=== PATIENT | female | born 1980 | race Caucasian/White ===

== ENCOUNTER → 2016-06-15 | Day surgery (SDC) ==
[~2016-06-15] MED LIST: CLAVE PUMP SET NO FILTER 12260 ONE; DEMEROL ONE; NITROGLYCERIN ONE; NS 1,000 ML ONE; NS 250 ML ONE; VERSED ONE; XYLOCAINE 1% 100 ML, EPINEPHRINE 1 MG, SODIUM BICARBONATE 8.4% 12.5 MEQ in NS 1,000 ML INJ SCH; XYLOCAINE 1% ONE
--- NOTE | 2016-06-15 12:26 | OPERATIVE NOTE ---
PROCEDURE DATE: 06/15/2016 PREOPERATIVE DIAGNOSES: 1. Chronic venous insufficiency of the left lower extremity. 2. Greater saphenous vein valvular reflux. 3. Nonhealing venous ulcers of the left leg. 4. Failure of medical therapy. POSTOPERATIVE DIAGNOSES: 1. Chronic venous insufficiency of the left lower extremity. 2. Greater saphenous vein valvular reflux. 3. Nonhealing venous ulcers of the left leg. 4. Failure of medical therapy. PROCEDURE: 1. Ultrasound-guided left greater saphenous vein access. 2. Radiofrequency ablation of left greater saphenous vein using the Fewziontronic closure vas system 26.5 cm treated. SURGEON: Nuno Novoa MD ANESTHESIA: 1. 1% lidocaine in tumescent mixture. 2. IV sedation provided with 2 mg of Versed and a total of 100 mg of Demerol. ESTIMATED BLOOD LOSS: 10 mL. COMPLICATIONS: None apparent. BRIEF HISTORY: This is a 35-year-old female with chronic nonhealing bilateral venous leg ulcers. She has been undergoing compression therapy, elevating her legs, and exercising without complete healing. This has been going on for greater than 6 months. She is here today for a second attempt at radiofrequency ablation of her left greater saphenous vein, which does have documented reflux disease. TECHNIQUE: She was brought to the operating room and placed supine on the table. Her left lower extremity was prepped and draped in usual sterile fashion. Time-out was performed. Versed and Demerol were given. Venous ultrasound was used to identify and sheree the greater saphenous vein by the underwriting technician. The vein was adequate diameter and did not have significant tortuosity. In the left proximal calf, the skin was anesthetized with lidocaine. A 20-gauge needle was then advanced under ultrasound guidance into the saphenous vein. There was a flash of blood and the wire did pass through the needle into the vein. A sheath was passed over the wire after making a small cut in the skin. I then took the catheter and began threading it through the sheath, there was some mild resistance in the knee area. However, the catheter continued to advance without significant resistance. The underwriting technician then placed the probe at the saphenofemoral junction and we did not see the catheter. Upon further investigation it became apparent that the catheter had followed a rotary lithographic press operator into the popliteal vein. We did pull the catheter back to the sheath and passed a guidewire through the catheter. We passed the catheter again over the guidewire and again it preferentially selected a perforating vein and went into the popliteal vein. I then aborted any further attempts at this point. I went up a little more proximal in the calf and attempted to access the greater saphenous vein, but could not access it successfully here. I then went to just above the knee, anesthetized the skin here, and this time I was able to access the vein and passed the wire and then the sheath and then the catheter into the sheath over the wire. The tip of the catheter was found to be at the saphenous femoral junction. The wire was removed. We pulled the tip of the catheter back a little over 3 cm from the saphenofemoral junction. I then infiltrated tumescent solution circumferentially around the saphenous vein under ultrasound guidance along multiple segments. I then treated the vein with the initial segment was treated first. We heated to 120 degrees Celsius for 20 seconds. I then pulled it back sequentially according to the markers on the catheter and each area was treated to 120 degrees Celsius for 20 seconds. The total treatment length was 26.5 cm, 100 mL of tumescent fluid was injected. Followup ultrasound showed no thrombus in the common femoral vein and no flow in the saphenous vein along the length that was treated. The leg was then wrapped with Kerlix and Coban above the knee and an Unna boot was placed below the knee. The procedure was terminated. The patient was transferred to the recovery room in stable condition.
== END | disposition home or self-care (01) ==
LOC: CATH 06:48
PROVIDERS: ATTEND Surgery
DX: I87.2 Venous insufficiency (chronic) (peripheral) (principal); L97.829 Non-pressure chronic ulcer of other part of left lower leg with unspecified severity; I25.10 Atherosclerotic heart disease of native coronary artery without angina pectoris; E11.9 Type 2 diabetes mellitus without complications; K92.9 Disease of digestive system, unspecified; K21.9 Gastro-esophageal reflux disease without esophagitis; I25.2 Old myocardial infarction; Z95.1 Presence of aortocoronary bypass graft; Z95.5 Presence of coronary angioplasty implant and graft; Z79.82 Long term (current) use of aspirin; Z79.4 Long term (current) use of insulin; Z79.899 Other long term (current) drug therapy
CPT/HCPCS: 36475; J0171; J2175; J2250; J7030; J7050

== ENCOUNTER 2016-09-12 18:05 | Inpatient (IN) ==
[2016-09-12] MEDS ORDERED: MORPHINE IV ONE (19:34)
[2016-09-12] MEDS ORDERED: NS 1,000 ML IV ONE (19:34)
[2016-09-12] MEDS ORDERED: ZOFRAN IV ONE (19:34)
[2016-09-12 19:55] LABS: ALLEN TEST YES; BE -25.9 mmoll (-3.0-3.0); BLOOD TYPE ARTERIAL; DRAW SITE L RADIAL; METHB 0.9 % (0.0-1.5); PO2(98.6) 113 mmHg (60-100); SAMPLE BLOOD; SAO2 97.7 % (95.0-100.0); THB 16.2 g/dL (11.5-17.4)
[2016-09-12 19:58] LABS: MODALITY ROOM AIR; PCO2(98.6) 16 mmHg (35-45); pH(98.6) 6.99 (7.35-7.45)
[2016-09-12 20:38] LABS: URINE CULTURE NEEDED? NO; URINE SOURCE CLEAN CATCH
[2016-09-12 20:45] LABS: BILIRUBIN URINE SMALL (NEGATIVE); BLOOD URINE SMALL (NEGATIVE); COLOR YELLOW; GLUCOSE URINE >1000 mg/dL (NEGATIVE); LEUKOCYTES URINE NEGATIVE (NEGATIVE); NITRITE URINE NEGATIVE (NEGATIVE); PH URINE 5.5; PROTEIN URINE 100 mg/dL (NEGATIVE); TURBIDITY URINE HAZY (CLEAR); UROBILINOGEN URINE NORMAL (NORMAL)
[2016-09-12 20:46] LABS: URINE MICRO REVIEW NEEDED? YES
[2016-09-12 20:50] LABS: UR EPITHELIAL CELLS <10 /HPF (<10); URINE BACTERIA NEGATIVE /HPF; URINE RBC <10 /HPF (<10); URINE WBC <10 /HPF (<10)
[2016-09-12 20:55] LABS: UR AMPHETAMINES QUAL NONE DETECTED (NONE DETECT); UR BARBITUATES QUAL NONE DETECTED (NONE DETECT); UR BENZODIAZEPIN QUAL NONE DETECTED (NONE DETECT); UR CANNABINOIDS QUAL NONE DETECTED (NONE DETECT); UR COCAINE QUAL NONE DETECTED (NONE DETECT); UR METHADONE QUAL NONE DETECTED (NONE DETECT); UR OPIATES QUAL NONE DETECTED (NONE DETECT); UR OXYCODONE QUAL NONE DETECTED (NONE DETECT); UR PCP QUAL NONE DETECTED (NONE DETECT)
[2016-09-12 21:03] LABS: BASO% 0.1 % (0.0-0.8); HEMATOCRIT 48.9 % (37.0-47.0); HEMOGLOBIN 15.5 g/dL (12.0-16.0); IMM GRAN# 0.15 X1000 (0.0-0.04); IMM GRAN% 0.7 % (0.0-0.5); LYMPH# 1.66 X1000 (1.2-3.4); MANUAL DIFF NEEDED? NO; MCH 24.8 PG (27-31); MCHC 31.7 g/dL (33-37); MCV 78.2 FL (81-99); MONO# 1.82 X1000 (0.11-0.59); MONO% 8.7 % (1.7-9.3); MPV 9.8 FL (7.4-10.4); NEUT% 82.5 % (42.2-75.2); PLT 451 X1000 (130-400); RBC 6.25 XMIL (4.2-5.4)
[2016-09-12] MEDS ORDERED: HUMULIN R 100 UNIT in NS 99 ML IV SCH (21:15)
[2016-09-12] MEDS ORDERED: HUMULIN R IV ONE (21:15)
[2016-09-12] MEDS ORDERED: D50W SYRINGE IV PRN (21:15)
[2016-09-12 21:16] LABS: URINE CASTS GRANULAR PRESENT; URINE CRYSTALS NONE SEEN; URINE SMALL ROUND CELLS NONE SEEN
[2016-09-12 21:29] LABS: ACETONE SERUM SMALL (NEGATIVE)
[2016-09-12] MEDS ORDERED: SODIUM PHOSPHATE 30 MMOL in D5W 250 ML IV PRN (21:30)
[2016-09-12] MEDS ORDERED: SODIUM BICARBONATE 8.4% 100 MEQ in D5W 500 ML IV PRN (21:30)
[2016-09-12] MEDS ORDERED: MAGNESIUM SULFATE 2 GM/S.W.I. 2 GM/50 ML IVPB IV PRN (21:30)
[2016-09-12 21:38] LABS: AGAP 29; ALBUMIN 4.2 g/dL (3.5-5.0); ALKALINE PHOSPHATASE 61 U/L (32-104); BUN 17 mg/dL (8-22); CALCIUM 8.9 mg/dL (8.8-10.2); CHLORIDE 98 mmol/L (98-107); CK PROFILE 28 U/L (24-173); COSMO 277; GOT 27 U/L (10-30); GPT 37 U/L (10-36); LIPASE 23 U/L (13-60); POTASSIUM 4.8 mmol/L (3.5-5.1); SODIUM 133 mmol/L (136-145); TCO2 6 mmol/L (25-35); TOTAL BILIRUBIN 0.52 mg/dL (0.20-1.00); TOTAL PROTEIN 9.2 g/dL (6.3-8.3)
[2016-09-12] MEDS: NS 1,000 ML IV SCH ×2 (23:30→23:49)
[2016-09-13] MEDS ORDERED: ZOFRAN IV PRN (00:05)
[2016-09-13] MEDS: NS 1,000 ML IV SCH ×5 (00:30→19:31)
[2016-09-13] MEDS: LEVAQUIN 500 MG/D5W 500 MG/100 ML IVPB IV SCH (01:01)
--- NOTE | 2016-09-13 01:24 | HISTORY AND PHYSICAL ---
CHIEF COMPLAINT: Nausea and vomiting x1 day. HISTORY OF PRESENTING ILLNESS: A 36-year-old female with a history of diabetes mellitus type 2, coronary artery disease, and hypertension, who had presented to the emergency department with a 1- day history of worsening nausea and vomiting. The patient states that she went on an extreme diet to lose weight, and she stopped her insulin, and then over the past day or so, she developed these symptoms. She was evaluated in the ER. She was found to have a low pH, and also elevated glucose, consistent with DKA. Subsequently, she will need hospitalization for further management. At the time of my examination, she denied any headache, visual changes, fevers, chills, chest pain, shortness of breath, but did admit to having nausea and vomiting and not feeling well. PAST MEDICAL HISTORY: Includes diabetes mellitus type 2, insulin-dependent, coronary artery disease, hypertension, and hyperlipidemia. PAST SURGICAL HISTORY: Cholecystectomy, coronary bypass, coronary stent. ALLERGIES: Penicillin. CURRENT MEDICATIONS: As listed in the MAR. SOCIAL HISTORY: She is a former smoker. Denies any history of alcohol or illicit drug use. FAMILY HISTORY: Positive for coronary artery disease in grandparents. REVIEW OF SYSTEMS: Twelve point review of systems listed as in HPI. Other systems negative. PHYSICAL EXAMINATION: GENERAL: Cooperative, friendly, obese female. She is resting more comfortably now. VITAL SIGNS: Temperature 98.1 degrees, pulse 122, respirations 26, blood pressure 145/93. She is saturating 100%. HEENT: Atraumatic, normocephalic. Extraocular movements intact. PERRLA. NECK: No masses. CHEST: Clear to auscultation. CARDIOVASCULAR: Regular rate and rhythm. ABDOMEN: Soft, obese, positive bowel sounds. EXTREMITIES: No edema. NEUROLOGIC: She is awake, alert, oriented x3. GENITOURINARY: No bladder distention. SKIN: Warm. LABORATORIES AND STUDIES: WBC 20.83, hemoglobin 15.5, hematocrit 48.9, platelets 451,000. Blood gases show a pH of 6.99. Other laboratories still pending. ASSESSMENT: A 36-year-old female with a history of diabetes mellitus type 2, insulin-dependent, coronary artery disease, and hypertension, who presented to the emergency department with a 1-day history of worsening nausea, vomiting. She was evaluated in the ER. She was found to be in diabetic ketoacidosis, and due to her presenting symptoms, she will need hospitalization for further management. 1. Diabetic ketoacidosis. 2. Leukocytosis. 3. Hypertension. 4. Coronary artery disease. 5. Hyperlipidemia. PLAN: 1. We will admit the patient to ICU. 2. We will put patient on an insulin drip protocol for diabetic ketoacidosis. 3. We will check blood cultures and start patient on empiric antibiotics. 4. We will monitor blood pressure closely. 5. Resume her home medications. 6. We will check a lipid profile. 7. Put patient on DVT prophylaxis with SCDs. 8. We will continue to follow and reassess. cc: Henry Martin MD
[2016-09-13 01:25] LABS: ALLEN TEST YES; BE -23.3 mmoll (-3.0-3.0); BLOOD TYPE ARTERIAL; DRAW SITE R RADIAL; METHB 0.6 % (0.0-1.5); O2(CT) 19.9 mL/dL (15.0-23.0); PO2(98.6) 180 mmHg (60-100); SAMPLE BLOOD; SAO2 98.2 % (95.0-100.0); THB 14.3 g/dL (11.5-17.4)
[2016-09-13 01:26] LABS: PCO2(98.6) 17 mmHg (35-45); pH(98.6) 7.07 (7.35-7.45)
[2016-09-13 01:27] LABS: MODALITY ROOM AIR
[2016-09-13 01:35] LABS: HEMOGLOBIN A1C 10.2 % (4.8-6.0)
[2016-09-13] MEDS: D5 NS 1,000 ML IV SCH ×4 (02:08→22:36)
[2016-09-13 05:46] LABS: ALLEN TEST YES; BE -19.1 mmoll (-3.0-3.0); BLOOD TYPE ARTERIAL; DRAW SITE R RADIAL; METHB 0.7 % (0.0-1.5); O2(CT) 19.3 mL/dL (15.0-23.0); PO2(98.6) 90 mmHg (60-100); SAMPLE BLOOD; SAO2 97.5 % (95.0-100.0); THB 14.3 g/dL (11.5-17.4)
[2016-09-13 05:48] LABS: MODALITY ROOM AIR; PCO2(98.6) 24 mmHg (35-45); pH(98.6) 7.14 (7.35-7.45)
[2016-09-13 06:04] LABS: MANUAL DIFF NEEDED? NO
[2016-09-13 06:12] LABS: BASO% 0.1 % (0.0-0.8); HEMATOCRIT 41.3 % (37.0-47.0); HEMOGLOBIN 13.4 g/dL (12.0-16.0); IMM GRAN# 0.07 X1000 (0.0-0.04); IMM GRAN% 0.5 % (0.0-0.5); LYMPH# 1.54 X1000 (1.2-3.4); MCHC 32.4 g/dL (33-37); MCV 77.1 FL (81-99); MONO# 1.47 X1000 (0.11-0.59); MONO% 10.5 % (1.7-9.3); MPV 9.5 FL (7.4-10.4); NEUT% 77.9 % (42.2-75.2); PLT 361 X1000 (130-400); RBC 5.36 XMIL (4.2-5.4)
[2016-09-13 06:39] LABS: AGAP 21; ALBUMIN 3.5 g/dL (3.5-5.0); ALKALINE PHOSPHATASE 48 U/L (32-104); BUN 13 mg/dL (8-22); CALCIUM 8.1 mg/dL (8.8-10.2); CHLORIDE 108 mmol/L (98-107); COSMO 279; GOT 19 U/L (10-30); GPT 26 U/L (10-36); POTASSIUM 4.1 mmol/L (3.5-5.1); SODIUM 137 mmol/L (136-145); TCO2 8 mmol/L (25-35); TOTAL BILIRUBIN 0.38 mg/dL (0.20-1.00); TOTAL PROTEIN 7.5 g/dL (6.3-8.3)
[2016-09-13 08:58] LABS: MANUAL DIFF NEEDED? NO
[2016-09-13 09:00] LABS: BASO% 0.1 % (0.0-0.8); HEMOGLOBIN 13.7 g/dL (12.0-16.0); IMM GRAN# 0.07 X1000 (0.0-0.04); IMM GRAN% 0.5 % (0.0-0.5); LYMPH% 10.5 % (20.5-51.1); MCHC 32.6 g/dL (33-37); MCV 76.8 FL (81-99); MONO# 1.34 X1000 (0.11-0.59); MPV 9.2 FL (7.4-10.4); NEUT% 78.9 % (42.2-75.2); PLT 340 X1000 (130-400); RBC 5.47 XMIL (4.2-5.4)
[2016-09-13 09:59] LABS: ALLEN TEST YES; BE -17.2 mmoll (-3.0-3.0); BLOOD TYPE ARTERIAL; DRAW SITE R RADIAL; METHB 0.6 % (0.0-1.5); PCO2(98.6) 28 mmHg (35-45); PO2(98.6) 89 mmHg (60-100); SAMPLE BLOOD; SAO2 96.7 % (95.0-100.0); THB 14.1 g/dL (11.5-17.4)
[2016-09-13 10:00] LABS: MODALITY ROOM AIR; pH(98.6) 7.16 (7.35-7.45)
[2016-09-13] MEDS: ZOFRAN IV PRN (10:01)
[2016-09-13] MEDS: TYLENOL PO PRN ×2 (10:40→20:47)
--- NOTE | 2016-09-13 13:47 | PROGRESS NOTE ---
DATE: 09/13/2016 SUBJECTIVE: The patient is still having nausea. No vomiting. She did not have any fever or chills. The patient has been losing weight for her gastric sleeve surgery coming up. She has lost over 30 pounds, and her blood sugar has been running low, so she did not take her insulin for 3 days and started having nausea and vomiting for the past day and came in with DKA. OBJECTIVE: Vital Signs: Blood pressure is 125/64, pulse of 110, respirations 23, temperature 98.3 degrees, saturation 97% on room air. General Appearance: Well-developed, well-nourished white female in moderate distress due to nausea. HEENT: Anicteric. Clear conjunctivae. Neck supple. No JVD. No bruit. Cardiovascular: S1, S2 normal rate and rhythm. No murmur, rubs, or gallops. Pulmonary: Clear to auscultation bilaterally. GI: Soft, nontender, nondistended. Normoactive bowel sounds. Musculoskeletal: No clubbing, cyanosis, or edema. White cell count is 13.39. Hemoglobin 13.7, hematocrit of 42.0, platelets of 340,000. Chemistry: Sodium 137, potassium 4.1, chloride 108, bicarb 8. BUN 13, creatinine 0.9, glucose 184. ASSESSMENT AND PLAN: This is a 36-year-old, white female, admitted to the hospital for diabetic ketoacidosis. We will keep the patient on insulin drip. Her gap still is wide. We will continue bicarb drips. We will continue with diabetic ketoacidosis protocol and we will check her basic every 4 hours to monitor her gap. Education provided regarding insulin intake. The patient is to check her blood sugar more often and try to adhere to her insulin regimens and contact her physician before she would make any major changes in her insulin regimens. We will keep the patient in ICU for now, and we will continue with diabetic ketoacidosis protocol.
[2016-09-13 13:50] LABS: MANUAL DIFF NEEDED? NO
[2016-09-13 14:04] LABS: BASO% 0.1 % (0.0-0.8); EOS# 0.01 X1000 (0.0-0.7); EOS% 0.1 % (0.0-10.0); HEMATOCRIT 41.1 % (37.0-47.0); HEMOGLOBIN 13.3 g/dL (12.0-16.0); LYMPH# 1.43 X1000 (1.2-3.4); LYMPH% 11.6 % (20.5-51.1); MCH 25.4 PG (27-31); MCHC 32.4 g/dL (33-37); MCV 78.6 FL (81-99); MONO# 1.32 X1000 (0.11-0.59); MONO% 10.7 % (1.7-9.3); MPV 9.3 FL (7.4-10.4); NEUT% 77.5 % (42.2-75.2); PLT 310 X1000 (130-400); RBC 5.23 XMIL (4.2-5.4)
[2016-09-13 14:21] LABS: MAGNESIUM 2.1 mg/dL (1.5-2.7)
[2016-09-13 14:44] LABS: AGAP 17; BUN 11 mg/dL (8-22); CALCIUM 8.3 mg/dL (8.8-10.2); CHLORIDE 109 mmol/L (98-107); COSMO 278; POTASSIUM 3.9 mmol/L (3.5-5.1); SODIUM 137 mmol/L (136-145); TCO2 11 mmol/L (25-35)
[2016-09-13 17:25] LABS: MANUAL DIFF NEEDED? NO
[2016-09-13 17:43] LABS: BASO% 0.1 % (0.0-0.8); EOS# 0.01 X1000 (0.0-0.7); EOS% 0.1 % (0.0-10.0); HEMATOCRIT 39.2 % (37.0-47.0); IMM GRAN# 0.03 X1000 (0.0-0.04); IMM GRAN% 0.3 % (0.0-0.5); LYMPH# 1.37 X1000 (1.2-3.4); LYMPH% 13.1 % (20.5-51.1); MAGNESIUM 2.1 mg/dL (1.5-2.7); MCH 25.4 PG (27-31); MCHC 33.2 g/dL (33-37); MCV 76.6 FL (81-99); MONO# 1.22 X1000 (0.11-0.59); MONO% 11.7 % (1.7-9.3); MPV 9.2 FL (7.4-10.4); NEUT% 74.7 % (42.2-75.2); PLT 338 X1000 (130-400); RBC 5.12 XMIL (4.2-5.4)
[2016-09-13 17:55] LABS: AGAP 16; BUN 11 mg/dL (8-22); CALCIUM 8.4 mg/dL (8.8-10.2); CHLORIDE 109 mmol/L (98-107); COSMO 283; POTASSIUM 3.4 mmol/L (3.5-5.1); SODIUM 139 mmol/L (136-145); TCO2 14 mmol/L (25-35)
[2016-09-13 21:21] LABS: MANUAL DIFF NEEDED? NO
[2016-09-13 21:25] LABS: BASO% 0.1 % (0.0-0.8); EOS# 0.01 X1000 (0.0-0.7); EOS% 0.1 % (0.0-10.0); HEMATOCRIT 37.3 % (37.0-47.0); HEMOGLOBIN 12.4 g/dL (12.0-16.0); IMM GRAN# 0.02 X1000 (0.0-0.04); IMM GRAN% 0.2 % (0.0-0.5); LYMPH# 1.48 X1000 (1.2-3.4); LYMPH% 15.8 % (20.5-51.1); MCH 25.3 PG (27-31); MCHC 33.2 g/dL (33-37); MCV 76.1 FL (81-99); MONO# 1.05 X1000 (0.11-0.59); MONO% 11.2 % (1.7-9.3); MPV 9.3 FL (7.4-10.4); NEUT% 72.6 % (42.2-75.2); PLT 314 X1000 (130-400)
[2016-09-14] MEDS: NEUTRA-PHOS PO SCH ×3 (00:08→07:56)
[2016-09-14] MEDS: LEVAQUIN 500 MG/D5W 500 MG/100 ML IVPB IV SCH (00:08)
[2016-09-14] MEDS: TYLENOL PO PRN ×4 (00:17→20:13)
[2016-09-14 03:46] LABS: AGAP 14; BUN 9 mg/dL (8-22); CALCIUM 8.2 mg/dL (8.8-10.2); CHLORIDE 107 mmol/L (98-107); COSMO 278; POTASSIUM 2.7 mmol/L (3.5-5.1); SODIUM 137 mmol/L (136-145); TCO2 16 mmol/L (25-35)
[2016-09-14] MEDS: NS 1,000 ML IV SCH ×3 (04:05→15:56)
[2016-09-14] MEDS ORDERED: POTASSIUM CHLORIDE 20 MEQ in NS 100 ML IV PRN (04:55)
[2016-09-14] MEDS ORDERED: POTASSIUM CHLORIDE 40 MEQ in NS 250 ML IV PRN (04:55)
[2016-09-14] MEDS: D5 NS 1,000 ML IV SCH (05:21)
[2016-09-14] MEDS: ZOFRAN IV PRN ×2 (06:30→20:13)
[2016-09-14] MEDS ORDERED: POTASSIUM PHOSPHATE IV ONE (09:00)
[2016-09-14] MEDS ORDERED: NS IV ONE (09:00)
--- NOTE | 2016-09-14 10:17 | PROGRESS NOTE ---
DATE: 09/14/2016 SUBJECTIVE: The patient is feeling better than she was yesterday. She got nauseous after she was given the Neutra-Phos by mouth and vomited. OBJECTIVE: Vital Signs: Blood pressure 95/58, pulse of 88, respirations 22, temperature 98.4 degrees, saturations of 97% room air. General Appearance: Obese, white female in mild distress due to nausea. HEENT: Anicteric. Clear conjunctivae. Neck: Supple. No JVD. No bruit. Cardiovascular: S1 and S2. Normal rate and rhythm. No murmur, rubs, or gallops. Pulmonary: Clear to auscultation bilaterally. GI: Soft, nontender, nondistended. Normoactive bowel sounds. Musculoskeletal: No clubbing, cyanosis, or edema. LABORATORY: White count this morning is 9.35, hemoglobin 12.4, hematocrit of 37.3, platelets 314,000. Sodium 137, potassium 2.7, replaced, chloride 107, bicarb 16, BUN 14, anion gap is 14, creatinine 0.7, glucose of 193, alkaline phosphatase 2.0. ASSESSMENT AND PLAN: This is a 36-year-old white female admitted to the hospital for diabetic ketoacidosis. 1. Diabetic ketoacidosis. Her gap is closing. We will continue to replete her electrolytes. She is still on insulin drip. Once her gap is 12 or less will switch her over to Lantus 10 units and then medium dose sliding scale insulin. We will stop her antibiotics. With no evidence of infection she does not need to be on antibiotics at this point. 2. Morbid obesity. The patient is able participate in a gastric bypass program and weight loss program.
[2016-09-14 10:50] LABS: MAGNESIUM 1.9 mg/dL (1.5-2.7)
[2016-09-14 11:02] LABS: AGAP 13; BUN 7 mg/dL (8-22); CALCIUM 8.4 mg/dL (8.8-10.2); CHLORIDE 109 mmol/L (98-107); COSMO 286; SODIUM 140 mmol/L (136-145); TCO2 18 mmol/L (25-35)
[2016-09-14] MEDS ORDERED: LANTUS SUBQ ONE (15:04)
[2016-09-14] MEDS: HUMULIN R SUBQ SCH ×2 (15:51→20:08)
[2016-09-14] MEDS ORDERED: INSULIN PEN NEEDLES ONE (15:56)
[2016-09-14 16:30] LABS: AGAP 12; BUN 6 mg/dL (8-22); CALCIUM 8.4 mg/dL (8.8-10.2); CHLORIDE 107 mmol/L (98-107); COSMO 277; MAGNESIUM 1.9 mg/dL (1.5-2.7); POTASSIUM 2.7 mmol/L (3.5-5.1); SODIUM 138 mmol/L (136-145); TCO2 19 mmol/L (25-35)
[2016-09-15] MEDS: NS 1,000 ML IV SCH ×2 (04:21→17:36)
[2016-09-15] MEDS: ZOFRAN IV PRN (06:04)
[2016-09-15] MEDS: HUMULIN R SUBQ SCH ×4 (06:04→22:05)
[2016-09-15 06:07] LABS: MANUAL DIFF NEEDED? NO
[2016-09-15 06:42] LABS: BASO% 0.1 % (0.0-0.8); EOS# 0.08 X1000 (0.0-0.7); EOS% 1.1 % (0.0-10.0); HEMOGLOBIN 11.4 g/dL (12.0-16.0); LYMPH# 3.69 X1000 (1.2-3.4); LYMPH% 49.3 % (20.5-51.1); MCH 25.3 PG (27-31); MCHC 33.5 g/dL (33-37); MCV 75.6 FL (81-99); MONO# 0.81 X1000 (0.11-0.59); MONO% 10.8 % (1.7-9.3); MPV 9.2 FL (7.4-10.4); NEUT% 38.7 % (42.2-75.2); PLT 243 X1000 (130-400)
[2016-09-15] MEDS: TYLENOL PO PRN ×3 (08:15→21:08)
[2016-09-15] MEDS: LANTUS SUBQ SCH (08:15)
[2016-09-15 10:13] LABS: AGAP 15; BUN 5 mg/dL (8-22); CALCIUM 8.1 mg/dL (8.8-10.2); CHLORIDE 103 mmol/L (98-107); COSMO 280; MAGNESIUM 1.8 mg/dL (1.5-2.7); POTASSIUM 2.7 mmol/L (3.5-5.1); SODIUM 140 mmol/L (136-145); TCO2 22 mmol/L (25-35)
[2016-09-15] MEDS: LYRICA PO SCH ×2 (10:48→21:08)
[2016-09-15] MEDS: ROBAXIN PO SCH ×2 (10:48→21:07)
[2016-09-15] MEDS: LEXAPRO PO SCH (10:48)
--- NOTE | 2016-09-15 11:15 | PROGRESS NOTE ---
DATE: 09/15/2016 SUBJECTIVE: The patient started having some nausea and vomiting this morning. She denies having any fever or chills. Did well last night without any issue. Complained of having a headache. OBJECTIVE: Vital Signs: Blood pressure 121/70. Pulse of 79, respiration 21, temperature 97.1 degrees, saturation 95% on room air. General Appearance: Morbidly obese, white female in mild distress due to headache. HEENT anicteric. Clear conjunctivae. Neck supple. No JVD. No bruit. Cardiovascular: S1, S2. Normal rate and rhythm. No murmur, rubs, or gallops. Pulmonary clear to auscultation bilaterally. GI soft, nontender, nondistended. Normoactive bowel sounds. Musculoskeletal: No clubbing, cyanosis, or edema. Her chemistry this morning is still pending. Hematology noted. ASSESSMENT AND PLAN: This is a [id number] obese, white female, admitted to the hospital for diabetic ketoacidosis. 1. Diabetic ketoacidosis. Her gap has been closed. The patient is on sliding scale insulin and Lantus. She tolerated p.o. last night but she had some nausea. We will check her labs to make sure that her anion gap is still closed and her electrolytes still in check. Her blood sugar had been relatively well controlled. 2. Hyperlipidemia. We will resume her Lipitor now that she is able to take it by mouth. 3. Hypertension. Continue Coreg. 4. Chronic pain and muscle spasm. We will resume her Robaxin. 5. Depression. We will continue her Lexapro. 6. Peripheral neuropathy. We will continue her Lyrica. This medication will help her headache as well. 7. Deep vein thrombosis prophylaxis. We will put the patient on Lovenox. 8. CODE STATUS: THE PATIENT IS A FULL CODE. We will transfer the patient to the floor if her anion gap is closed.
[2016-09-15] MEDS ORDERED: POTASSIUM PHOSPHATE 40 MEQ in NS 250 ML IV ONE (14:16)
[2016-09-15] MEDS: POTASSIUM CHLORIDE 20 MEQ/SWI 20 MEQ/100 ML IVPB IV SCH ×2 (14:58→17:09)
[2016-09-16 04:05] LABS: BASO% 0.4 % (0.0-0.8); EOS# 0.13 X1000 (0.0-0.7); EOS% 1.6 % (0.0-10.0); HEMATOCRIT 35.3 % (37.0-47.0); HEMOGLOBIN 11.9 g/dL (12.0-16.0); LYMPH# 4.43 X1000 (1.2-3.4); LYMPH% 55.4 % (20.5-51.1); MANUAL DIFF NEEDED? NO; MCH 25.3 PG (27-31); MCHC 33.7 g/dL (33-37); MCV 74.9 FL (81-99); MONO# 0.63 X1000 (0.11-0.59); MONO% 7.9 % (1.7-9.3); MPV 8.8 FL (7.4-10.4); NEUT% 34.7 % (42.2-75.2); PLT 241 X1000 (130-400); RBC 4.71 XMIL (4.2-5.4)
[2016-09-16 04:13] LABS: AGAP 13; BUN 7 mg/dL (8-22); CALCIUM 8.4 mg/dL (8.8-10.2); CHLORIDE 101 mmol/L (98-107); COSMO 276; POTASSIUM 3.1 mmol/L (3.5-5.1); SODIUM 138 mmol/L (136-145); TCO2 24 mmol/L (25-35)
[2016-09-16] MEDS: HUMULIN R SUBQ SCH ×2 (06:04→10:25)
[2016-09-16] MEDS: NS 1,000 ML IV SCH (08:21)
[2016-09-16] MEDS: ROBAXIN PO SCH (08:21)
[2016-09-16] MEDS: LYRICA PO SCH (08:22)
[2016-09-16] MEDS: LEXAPRO PO SCH (08:22)
[2016-09-16] MEDS: LANTUS SUBQ SCH (08:23)
[2016-09-16] MEDS ORDERED: LOVENOX SUBQ SCH (09:00)
[2016-09-16 11:30] VITALS: BP 117/66
--- NOTE | 2016-09-16 21:40 | DISCHARGE SUMMARY ---
ADMISSION DATE: 09/12/2016 DISCHARGE DATE: 09/16/2016 PRIMARY CARE PHYSICIAN: Juan De La Torre MD DISCHARGE DIAGNOSES: 1. Diabetic ketoacidosis, resolved. 2. Diabetes type 2, uncontrolled. 3. Morbid obesity, improved. 4. Peripheral vascular disease. 5. Bilateral lower extremity ulcers. 6. Depression. 7. Hypertension. 8. Gastroesophageal reflux disease. DISCHARGE MEDICATIONS: 1. Vitamin D 5000 international units daily. 2. 70/30 NovoLog mix, 20 units twice a day. 3. Coreg 3.125 twice a day. 4. Invokana 300 mg by mouth in a.m. 5. Aspirin 81 mg p.o. daily. 6. Lantus 15 units at bedtime. 7. Lexapro 20 mg p.o. daily. 8. Omeprazole 40 mg p.o. daily. 9. B12 1 tablet p.o. daily. CONSULTATIONS AND PROCEDURES: None except for wound care consult. LABORATORY: At discharge, white count 7.99, hemoglobin 11.9, hematocrit of 35.3, platelets 241,000. Chemistry: Sodium 130, potassium 3.1, chloride 101, bicarb 24, BUN 7, creatinine 0.5, glucose 143. HOSPITAL COURSE: The patient is a 36-year-old white female admitted to the hospital for nausea and vomiting and was found to have a wide anion gap. The patient had been losing some weight and she did not take her insulin as prescribed because her blood sugars seemed to be running on the lower side. Then she started having nausea and vomiting. She did not take her insulin even then. So she came in with a wide anion gap. The patient was diagnosed with DKA and admitted to the ICU for insulin drips. We followed the DKA protocol. Took the patient about 3 days for her anion gap to close. For the past 24 hours she was able to eat and drink without any difficulty. We have repleted her electrolytes because of hypokalemia and hypophosphatemia. Her electrolytes are much improved. The patient is able to eat a full diabetic diet without any nausea or vomiting. From my standpoint, the patient can go. Because of weight loss, I cut her insulin down to 50 units of Lantus daily and 20 units of 70/30 twice a day. We will discharge the patient home at discharge. DISCHARGE EXAMINATION: Vital signs: Blood pressure 117/66, pulse of 76, respiration 18, temperature 97.8 degrees, saturations of 94% room air. General appearance: Obese white female in no acute distress. HEENT: Anicteric sclerae. Clear conjunctivae. Neck: Supple. No JVD. No bruit. Cardiovascular: S1, S2. Normal rate and rhythm. No murmur, rubs, or gallops. Pulmonary: Clear to auscultation bilaterally. GI: Soft, nontender, nondistended. Normoactive bowel sounds. Musculoskeletal: No clubbing, cyanosis, or edema. Extremities: She has an anterior ankle wound that is being managed by wound care and home health. PLAN: We will discharge the patient home. CONDITION: Stable and improving. ACTIVITY: As tolerated. FOLLOWUP: The patient can follow with her PCP in 1-2 weeks. TOTAL TIME DISCHARGING PATIENT: 35 minutes.
--- NOTE | 2016-10-10 20:37 | PROVIDER DOCUMENTATION ---
This chart was entered by Damaris Paige Scribe, acting as scribe for Jackson Lyon PA. HPI-General Adult - General Chief Complaint: General Adult Stated Complaint: VOMITING,LOW BLOOD SUGAR Time Seen by Provider: 09/12/16 19:09 Source: patient Allergies/Adverse Reactions: Patient Allergies Allergy/AdvReac Type Severity Reaction Status Date / Time Penicillins Allergy HIVES Verified 05/23/16 14:48 Home Medications: Home Medication List Medication Instructions Recorded Confirmed Last Taken Type Canagliflozin [Invokana] 300 mg PO AC 05/23/16 09/15/16 Unknown History Escitalopram Oxalate [Lexapro] 20 mg PO DAILY 05/23/16 09/15/16 09/12/16 09:00 History Omeprazole 40 mg PO DAILY 05/23/16 09/15/16 09/12/16 09:00 History Aspirin [Adult Low Dose Aspirin EC] 81 mg PO QAM 06/01/16 09/15/16 09/12/16 09: 00 History Carvedilol [Coreg] 3.125 mg PO BID 06/01/16 09/15/16 09/12/16 09:00 History Cholecalciferol (Vitamin D3) 5,000 unit PO DAILY 09/15/16 09/15/16 Unknown History [Vitamin D3] Cyanocobalamin (Vitamin B-12) 09/15/16 Unknown History [Vitamin B12] Insulin Glargine [Lantus] 15 unit SUBQ QHS #10 ml 09/16/16 09/15/16 09/12/16 09: 00 Rx Insulin Novolog 70/30 [Novolog Mix 20 units SQ AC + HS #10 ml 09/16/16 09/15/16 Unknown Rx 70/30] - History of Present Illness -Gen Adult Nature of Presenting Problems: 36 Y/O F presents to ED with General Adult . Pt is a morbidly obese, Pt has gone on a crash diet, so that she can lose weight with g sleeve. Pt hasn't taken her insulin due to her low numbers because of crash diet. Pt c/o of 2x days lethargic, fatigue, N. Location of Pain/Injury: reports: generalized Pain Radiation: reports: no radiation Severity: reports: severe Onset/Duration: reports: 2 days ago Timing: reports: still present Associated Symptoms: reports: fatigue, nausea, weakness. denies: cough, diarrhea, dizziness, fever/chills, sinus congestion/drainage Similar Symptoms Previously?: No - Diabetes Related Context Context: reports: low blood sugar Review of Systems - Adult - REVIEW OF SYSTEMS - ADULT Constitutional: reports: fatique, weight loss. denies: chills, fever Eyes: reports: no symptoms reported Ears, Nose, Mouth & Throat: reports: no symptoms reported Cardiovascular: reports: no symptoms reported Respiratory: denies: cough, shortness of breath Gastrointestinal: reports: nausea. denies: abdominal pain, diarrhea, vomiting Genitourinary: reports: no symptoms reported Musculoskeletal: reports: no symptoms reported Integumentary: reports: no symptoms reported Neurological: reports: no symptoms reported Psychiatric: reports: no symptoms reported Endocrine: reports: no symptoms reported Hematologic/Lymphatic: reports: no symptoms reported Allergic/Immunologic: reports: no symptoms reported All Other Systems: Reviewed and Negative Past History - Adult - PAST MEDICAL HISTORY-ADULT Review of Records: reports: Old Records Reviewed, Nursing Assessment Review, Medications Reviewed, Social history reviewed & non-contributory. Physical Exam-General - CONSTITUTIONAL General Appearance: alert, no apparent distress, obese - EYES Eyes: PERRL/EOMI, pink conjunctivae, anisocoria - HEAD, EARS, NOSE, MOUTH & THROAT HENMT: normocephalic/atraumatic, moist mucous membranes, normal ENT inspection, TMs normal, pharynx normal - NECK Neck: non-tender, full range of motion, supple, normal inspection - RESPIRATORY Respiratory: chest non-tender, lungs clear, normal breath sounds - CARDIOVASCULAR Cardiovascular: normal peripheral pulses, regular rate, rhythm - GASTROINTESTINAL (ABDOMEN) Abdominal Exam: normal bowel sounds, non tender, soft - LYMPHATIC Lymphatic: no adenopathy - MUSCULOSKELETAL Back Exam: normal inspection, no CVA tenderness, no vertebral tenderness Extremity: normal range of motion, non-tender, normal gait - SKIN Integumentary: normal color, normal turgor, warm/dry - NEUROLOGIC Neurologic: grossly normal - PSYCHIATRIC Psych/Mental Status: normal mood/affect, normal thought content, normal thought process, oriented x 3 Progress - PLAN OF CARE/RESULTS Progress/Plan/Lab Results: Vital Signs - 8 hr 09/12/16 18:45 Temperature 98.6 F Pulse Rate 122 H Respiratory Rate 26 H Blood Pressure 145/93 O2 Sat by Pulse Oximetry 100 Laboratory Results - last 24 hr 09/12/16 19:46 Specimen Type ARTERIAL Sample Site L RADIAL pH 6.99 L* pCO2 16 L* pO2 113 H HCO3 4.7 L Base Excess -25.9 L Oxyhemoglobin 96.3 ABG O2 Sat (Calculated) 22.0 ABG O2 Saturation 97.7 ABG Carboxyhemoglobin 0.50 ABG Methemoglobin 0.9 Dale Test YES A-a O2 Difference 17.0 Total Hemoglobin 16.2 Lactate 1.10 Blood Gas Modality ROOM AIR FiO2 % 21.0 Orders Category Date Time Status Saline Loc NOW Care 09/12/16 19:33 Active ABG [RESP] Routine Lab 09/12/16 19:46 Completed ACETONE SERUM [CHEM] Stat Lab 09/12/16 19:34 Uncollected CBC WITH ELECTRONIC DIFF [HEME] Stat Lab 09/12/16 19:33 Uncollected CK PROFILE [SP CHEM] Stat Lab 09/12/16 19:33 Ordered COMPREHENSIVE METABOLIC PANEL [CHEM] Stat Lab 09/12/16 19:33 Uncollected LIPASE [CHEM] Stat Lab 09/12/16 19:34 Uncollected URINALYSIS W/POSS RFLX CULT-1 [URINALYSIS] Stat Lab 09/12/16 19:33 Uncollected URINE DRUG SCREEN Stat Lab 09/12/16 19:33 Uncollected 0.9% Sodium Chloride Inj [Ns] 1,000 ml Med 09/12/16 19:34 Active IV 999 mls/hr Morphine Med 09/12/16 19:34 Discontinued 4 mg IV NOW ONE Ondansetron [Zofran] Med 09/12/16 19:34 Discontinued 4 mg IV NOW ONE EKG [EKG] Stat Ther 09/12/16 19:33 Ordered Result Diagrams: 09/16/16 03:55 09/16/16 03:55 - CONSULTS/PCP/HOSPITALIST Notification #1 *Consult/PCP/Hospitalist*: Dr. Martin Time Discussed: 20:17 Reason/Comments: Admit Consult Disposition: Admit (Admit Accepted) Departure - Departure Date of Disposition Decision: 09/12/16 Time of Disposition Decision: 20:00 DIAGNOSIS: DKA (diabetic ketoacidoses) Qualifiers: Diabetes mellitus complication detail: without coma Disposition: ADMITTED INPATIENT 09 Certified Medical Emergency: Emergent Condition: Stable - Critical Care Note This patient required my direct & personal management of CC.: Yes Total Time (mins): 31 Critical Care Statement: This patient required my direct personal management to treat or rule out processes, the absence of which, could potentiallly result in sudden, clinically significant life or limb threatening deterioration. This chart was documented by the indicated scribe, (Damaris Paige Scribe) and accurately reflects the services I performed and decisions made by me, Jackson Lyon PA, as attested by the provider's signature.
== END 2016-09-16 12:35 | disposition home or self-care (01) ==
LOC: ED 18:05 → SUATTDRO 18:06 → ICU 22:09
PROVIDERS: ATTEND Internal Medicine